=== PATIENT | male | born 1965 | race Two or more races ===

== ENCOUNTER → 2018-05-18 | Outpatient (CLI) | payer OTHER ==
[2018-05-18 10:13] LABS: BUN/Creatinine Ratio 10.4; Calcium 8.5 mg/dL (8.5-10.1); Potassium 4.7 mmol/L (3.5-5.1)
[2018-05-18 10:16] LABS: Bilirubin, Total 0.5 mg/dL (0.2-1.0); Total Protein 7.4 g/dL (6.4-8.2)
== END | disposition home or self-care (01) ==
LOC: LAB 08:40
DX: E11.8 Type 2 diabetes mellitus with unspecified complications (principal); R80.9 Proteinuria, unspecified
CPT/HCPCS: 36415; 80053; 82043; 83036

== ENCOUNTER → 2018-08-27 | Outpatient (CLI) | payer OTHER ==
[2018-08-27 08:17] LABS: Urine Bacteria NONE SEEN /hpf (None Seen); Urine Blood Negative /uL (Negative); Urine Mucus FEW (None Seen); Urine Specific Gravity 1.033 (1.001-1.035); Urine WBC 1 /hpf (0 - 3)
[2018-08-27 08:46] LABS: Cholesterol 246 mg/dL (< 200); Glucose 271 mg/dL (74-106); HDL Cholesterol 42 mg/dL (40-59); LDL Cholesterol 166 mg/dL (< 100); Triglycerides 348 mg/dL (< 150)
== END | disposition home or self-care (01) ==
LOC: LAB 07:53
DX: E11.8 Type 2 diabetes mellitus with unspecified complications (principal)
CPT/HCPCS: 36415; 80061; 81001; 82947; 83036

== ENCOUNTER → 2018-10-15 | Outpatient (CLI) | payer OTHER ==
[2018-10-15 09:04] LABS: Glucose 121 mg/dL (74-106)
[2018-10-15 09:10] LABS: Cholesterol 195 mg/dL (< 200); HDL Cholesterol 45 mg/dL (40-59); LDL Cholesterol 127 mg/dL (< 100); Triglycerides 185 mg/dL (< 150)
[2018-10-15 10:26] LABS: Urine Bacteria NONE SEEN /hpf (None Seen); Urine Blood Negative /uL (Negative); Urine Mucus FEW (None Seen); Urine Specific Gravity 1.022 (1.001-1.035); Urine WBC <1 /hpf (0 - 3)
== END | disposition home or self-care (01) ==
LOC: LAB 07:39
DX: E11.8 Type 2 diabetes mellitus with unspecified complications (principal)
CPT/HCPCS: 36415; 80061; 81001; 82947; 83036

== ENCOUNTER → 2018-11-13 | Outpatient (CLI) | payer BC ==
[2018-11-13 08:35] LABS: Cholesterol 191 mg/dL (< 200); Glucose 104 mg/dL (74-106); Triglycerides 224 mg/dL (< 150)
[2018-11-13 08:37] LABS: HDL Cholesterol 45 mg/dL (40-59); LDL Cholesterol 123 mg/dL (< 100)
[2018-11-13 08:52] LABS: Urine Bacteria NONE SEEN /hpf (None Seen); Urine Blood Negative /uL (Negative); Urine WBC <1 /hpf (0 - 3)
== END | disposition home or self-care (01) ==
LOC: LAB 08:01
DX: E11.8 Type 2 diabetes mellitus with unspecified complications (principal)
CPT/HCPCS: 36415; 80061; 81001; 82947; 83036